=== PATIENT | male | born 1945 | race Hispanic/Latino ===

== ENCOUNTER → 2019-05-02 | Day surgery (SDC) | payer MEDICARE ==
[2019-04-28 12:18] LABS: BASOPHILS % 0.4 % (0.0-1.0); EOSINOPHILS # (AUTO) 0.1 (0.0-0.4); EOSINOPHILS % 0.7 % (0.0-6.0); HEMATOCRIT 40.5 % (38.2-49.6); LYMPHOCYTES # (AUTO) 2.1 (1.0-3.2); LYMPHOCYTES % 24.8 % (18.0-39.1); MEAN CORPUSCULAR HEMOGLOBIN 31.5 pg (28-32); MEAN CORPUSCULAR HGB CONC 34.6 g/dL (31-35); MEAN CORPUSCULAR VOLUME 91.2 fL (81-99); MONOCYTES # (AUTO) 0.7 (0.2-0.8); MONOCYTES % 8.3 % (4.4-11.3); NEUTROPHILS # (AUTO) 5.4 (2.1-6.9); PLATELET COUNT 170 x10e3/uL (140-360); RED BLOOD COUNT 4.44 x10e6/uL (4.3-5.7); RED CELL DISTRIBUTION WIDTH 13.2 % (11.7-14.4)
--- NOTE | 2019-04-28 12:33 | Diagnostic Imaging Report ---
EXAMINATION: CHEST 2 VIEWS INDICATION: Pre-operative COMPARISON: None FINDINGS: TUBES and LINES: None. LUNGS: The lung volumes are normal. No focal consolidation or pulmonary edema. PLEURA: No pleural effusion or pneumothorax. HEART AND MEDIASTINUM: The cardiomediastinal silhouette is normal in size and contour. BONES AND SOFT TISSUES: Age indeterminate T12 compression fracture. UPPER ABDOMEN: No free air under the diaphragm. IMPRESSION: No focal pneumonia or pulmonary edema. Age indeterminate T12 compression fracture. Signed by: Davion Polanco MD on 04/28/2019 12:29 PM
[2019-04-28 12:46] LABS: ANION GAP 10.8 mmol/L (8-16); BLOOD UREA NITROGEN 13 mg/dL (7-26); BUN/CREATININE RATIO 16 (6-25); CALCIUM 8.8 mg/dL (8.4-10.2); CARBON DIOXIDE 26 mmol/L (22-29); CHLORIDE 105 mmol/L (98-107); CREATININE, SERUM 0.81 mg/dL (0.72-1.25); EST GLOMERULAR FILTRATION RATE > 60 ML/MIN (60-); GLUCOSE 81 mg/dL (74-118); POTASSIUM 3.8 mmol/L (3.5-5.1); SODIUM 138 mmol/L (136-145)
[~2019-05-02] MED LIST: BUPIVACAINE 0.25%/EPI 30ML SDV INJ ONE; CHOLESTEROL MED PO; DEXAMETHASONE SOD PHOS INJ 4 MG/ML VIAL ONE; FENTANYL CITRATE/PF 100MCG/2 ML INJ ONE; LIDOCAINE HCL 1% LOCAL INJ 20 ML VIAL ONE; LIDOCAINE HCL 2% LOCAL INJ 5 ML SDV VIAL INJ ONE; METFORMIN HCL500 MG PO; ONDANSETRON HCL INJ 2MG/ML 2ML 2 MG/ML VIAL ONE; PROPOFOL IV EMULSION 10 MG/ML 20 ML VIAL ONE; SEVOFLURANE INHAL SOLN 250 ML PEN BTL ONE
--- OUTSIDE RECORDS SUMMARY | 2019-05-02 06:53 | XMS REPORT ---
Author [facility] Address Unknown Phone Unavailable Care Team Providers Care Shift Leader Name Role Phone Zoey CALHOUN Unavailable Unavailable Payers Payer Name Policy Type Policy Number Effective Date Expiration Date Problems This patient has no known problems. Allergies, Adverse Reactions, Alerts Allergy Name Allergy Type Status Severity Reaction(s) Onset Date Inactive Date Treating Clinician Comments No Known Allergies DA Active U 2018-05-09 00:00:00 Medications This patient has no known medications. Results Test Description Test Time Test Comments Text Results Atomic Results Result Comments CHEST 2 VIEWS 2019-04-28 12:27:00 [place] [address] Patient Name: MAT ELMORE MR #: [id number] : 1945 Age/Sex: 73/M Req #: [id number] [facility] Physician: Ordered by: JAYE CALHOUN MD Report #: [id number] Location: OR Room/Bed: Procedure: [id number] DX/CHEST 2 VIEWS Exam Date: 04/28/19 Exam Time: 1142 REPORT STATUS: Signed EXAMINATION: CHEST 2 VIEWS INDICATION: Pre-operative COMPARISON: None FINDINGS: TUBES and LINES: None. LUNGS: The lung volumes are normal. No focal consolidation or pulmonary edema. PLEURA: No pleural effusion or pneumothorax. HEART AND MEDIASTINUM: The cardiomediastinal silhouette is normal in size and contour. BONES AND SOFT TISSUES: Age indeterminate T12 compression fracture. UPPER ABDOMEN: No free air under the diaphragm. IMPRESSION: No focal pneumonia or pulmonary edema. Age indeterminate T12 compression fracture. Signed by: tEhan Lovell MD on 04/28/2019 12:29 PM Dictated By: ETHAN LOVELL MD 122 Transcribed By: STEVEN on 04/28/191228 COPY TO: JAYE CALHOUN MD PROSTATE, TUR 2019-01-16 15:30:00 RUN DATE: 01/16/19 [facility] PAGE 1 RUN TIME: 1530 Specimen Inquiry RUN USER: INTERFACE PATIENT: MAT ELMORE LOC: [place] U #: [id number] AGE/SX: 73/M ROOM: [facility] RE01/13/19[facility] DR: Mike Kline MD : [birth year] BED: A DIS: 01/14/19 STATUS: DIS John TLOC: SPEC #: [id number] RECD: 01/13/19 STATUS: LITO REQ #: [id number] JUSTINO: 01/13/[address] [facility] [address]: Mike Kline MD ENTERED: 01/13/19 SP TYPE: PROSTATE, OTHR DR: Kristopher Kline MD ORDERED: GROSS COPIES TO: Kristopher Kline MD [address] [place] [address] Mike Kline MD [address] [place] [address] MARKERS: INTRADEPARTMENTAL CONSULT PROCEDURES: GROSS (01/15/19-1540) TISSUES: PROSTATE, NOS - CHIP (TURP) CLINICAL HISTORY COLLECTION DATE: 01/13/19 BPH, BLADDER STONES COMMENT Intradepartmental consultation: RRB. FINAL DIAGNOSIS Prostate chips, transurethral resection of prostate: NODULAR HYPERPLASIA WITH SOME AREAS OF ACUTE AND CHRONIC INFLAMMATION, PROSTATIC TISSUE ACUTE AND CHRONIC INFLAMMATION, UROTHELIAL MUCOSA NEGATIVE FOR MALIGNANCY RUPERTO/ashley Burkett [address] CONTINUED ON NEXT PAGE -- RUN DATE: 01/16/19 [place] - Lab PAGE 2 RUN TIME: 1530 Specimen Inquiry RUN USER: INTERFACE SPEC #: [id number] PATIENT: MAT ELMORE #[id number] ([facility]ly [facility]) MACROSCOPIC The specimen is received in formalin, labeled with the patient's name and identified as "prostate chips". It consists of numerous fragments of rubbery pink-box tissue measuring 4.0 X 4.0 X 3.8 cm in aggregate. The tissue weighs 30.2 grams. Nodular areas are seen in many of the fragments. The specimen is submitted in its entirety for microscopic evaluation in cassettes (1A-1W). GROSS PERFORMED AT [facility] [address] [place] [address] [phone])[phone] MICROSCOPIC All of the stains, including any controls performed, stain appropriately. MICROSCOPIC PERFORMED AT [facility] [address] [place] [address] [phone])[phone] PERFORMING SITE Diagnosis performed at: [facility] [address] [place] [address] Signed SIGNATURE ON FILE Katey Cardenas MD 01/16/19 8380 END OF REPORT GLUBED 2019-01-13 09:17:00 GLUBED (test code=GLUBED) 103 mg/dL 74-106 Performed by certified refinery operator alkylation at [facility] COMPREHENSIVE METABOLIC [id number] 10:40:00* Test Item Value Reference Range Comments SODIUM (test code=NA) 141 mmol/L 136-145 POTASSIUM (test code=K) 3.7 mmol/L 3.5-5.1 CHLORIDE (test code=CL) 109.0 mmol/L 98-107 CARBON DIOXIDE (test code=CO2) 27.0 mmol/L 21-32 ANION GAP (test code=GAP) 8.7 10-20 GLUCOSE (test code=GLU) 106 mg/dL 74-106 BLOOD UREA NITROGEN (test code=BUN) 15 mg/dL 7-18 GLOMERULAR FILTRATION RATE (test code=GFR) > 60 mL/min >=60 Estimated GFR by using Modified MDRD formula.Chronic kidney disease is defined as either kidney damageor GFR <60 mL/min/1.73 m2 for >3 months. CREATININE (test code=CREAT) 0.90 mg/dL 0.7-1.3 BUN/CREATININE RATIO (test code=BUN/CREA) 16.7 10-20 TOTAL PROTEIN (test code=PROT) 7.8 gram/dL 6.4-8.2 ALBUMIN (test code=ALB) 4.0 g/dL 3.4-5.0 GLOBULIN (test code=GLOB) 3.8 gram/dL 2.7-4.2 ALBUMIN/GLOBULIN RATIO (test code=A/G) 1.1 0.75-1.50 CALCIUM (test code=CA) 8.9 mg/dL 8.5-10.1 BILIRUBIN TOTAL (test code=BILT) 0.50 mg/dL 0.0-1.0 SGOT/AST (test code=AST) 20 IUnit/L 15-37 SGPT/ALT (test code=ALT) 30 IUnit/L 12-78 ALKALINE PHOSPHATASE TOTAL (test code=ALKP) 70 IUnit/L 45-117 Note change in reference range due to change in reagent. - XR CHEST 2 [id number] 10:08:00 FAX: Kristopher Curry MD [phone] [place]: O St: PRE FAX: Mike Curry MD [phone] Name: MAT ELMORE [facility] : 1945 Age/S: 73/M [address] [facility] Unit #: [id number] Loc: [place] [address] Phys: Mike Kline MD Acct: [id number] Dis Date: Status: PRE SDC PHONE #: [phone] Exam Date: 01/06/2019 0953 FAX #: [phone] Reason: PRE OP EXAMS: CPT CODE: [id number] XR CHEST 2 V 68192 HISTORY: Preop. COMPARISON: June 07, 2018. AP and lateral view of the chest: No acute infiltrates, effusion or congestion. Cardiac and the mediastinal silhouette are normal. IMPRESSION: No acute infiltrates, effusion or congestion. at 1008 Reported and signed by: Ge Borja M.D. CC: Kristopher Kline; Mike Kline M.D. Technologist: RT Ashanti(Kenzie) Trnscantonio Date/Time/By: 01/06/2019 (1008) : By: [email or web address] Orig Print D/T: S: 01/06/2019 (1011) PAGE 1 Signed Report CBC W/AUTO [id number] 10:01:00* Test Item Value Reference Range Comments WHITE BLOOD CELL (test code=WBC) 8.5 K/mm3 4.5-12.5 RED BLOOD CELL (test code=RBC) 4.65 mill/mm3 4.0-5.8 HEMOGLOBIN (test code=HGB) 14.1 gram/dL 13.0-17.5 HEMATOCRIT (test code=HCT) 43.9 % 42.0-52.0 MEAN CELL VOLUME (test code=MCV) 94.4 fL 80-98 MEAN CELL HGB (test code=MCH) 30.3 picogram 27.0-33.0 MEAN CELL HGB CONCETRATION (test code=MCHC) 32.1 gram/dL 33.0-36.0 RED CELL DISTRIBUTION WIDTH (test code=RDW) 13.3 % 11.6-16.2 RED CELL DISTRIBUTION WIDTH SD (test code=RDW-SD) 46.0 fL 37.0-51.0 PLATELET COUNT (test code=PLT) 163 K/mm3 150-450 MEAN PLATELET VOLUME (test code=MPV) 10.8 fL 6.7-11.0 NEUTROPHIL % (test code=NT%) 64.4 % 39.0-69.0 IMMATURE GRANULOCYTE % (test code=IG%) 0.7 % 0.0-5.0 LYMPHOCYTE % (test code=LY%) 25.8 % 25.0-55.0 MONOCYTE % (test code=MO%) 7.9 % 0.0-10.0 EOSINOPHIL % (test code=EO%) 0.8 % 0.0-5.0 BASOPHIL % (test code=BA%) 0.4 % 0.0-1.0 NUCLEATED RBC % (test code=NRBC%) 0.0 % 0-0 NEUTROPHIL # (test code=NT#) 5.48 K/mm3 1.8-7.7 IMMATURE GRANULOCYTE # (test code=IG#) 0.06 x10 3/uL 0-0.03 LYMPHOCYTE # (test code=LY#) 2.19 K/mm3 1.0-5.0 MONOCYTE # (test code=MO#) 0.67 K/mm3 0-0.8 EOSINOPHIL # (test code=EO#) 0.07 K/mm3 0.0-0.5 BASOPHIL # (test code=BA#) 0.03 K/mm3 0.0-0.2 NUCLEATED RBC # (test code=NRBC#) 0.00 K/mm3 0.0-0.1 MANUAL DIFF REQUIRED (test code=MDIFF) NO CBC W/AUTO [id number] 09:52:00* Test Item Value Reference Range Comments WHITE BLOOD CELL (test code=WBC) K/mm3 4.5-12.5 RED BLOOD CELL (test code=RBC) mill/mm3 4.0-5.8 HEMOGLOBIN (test code=HGB) 14.1 gram/dL 13.0-17.5 HEMATOCRIT (test code=HCT) 43.9 % 42.0-52.0 MEAN CELL VOLUME (test code=MCV) fL 80-98 MEAN CELL HGB (test code=MCH) picogram 27.0-33.0 MEAN CELL HGB CONCETRATION (test code=MCHC) gram/dL 33.0-36.0 RED CELL DISTRIBUTION WIDTH (test code=RDW) % 11.6-16.2 RED CELL DISTRIBUTION WIDTH SD (test code=RDW-SD) fL 37.0-51.0 PLATELET COUNT (test code=PLT) K/mm3 150-450 MEAN PLATELET VOLUME (test code=MPV) fL 6.7-11.0 NEUTROPHIL % (test code=NT%) % 39.0-69.0 IMMATURE GRANULOCYTE % (test code=IG%) % 0.0-5.0 LYMPHOCYTE % (test code=LY%) % 25.0-55.0 MONOCYTE % (test code=MO%) % 0.0-10.0 EOSINOPHIL % (test code=EO%) % 0.0-5.0 BASOPHIL % (test code=BA%) % 0.0-1.0 NEUTROPHIL # (test code=NT#) K/mm3 1.8-7.7 LYMPHOCYTE # (test code=LY#) K/mm3 1.0-5.0 MONOCYTE # (test code=MO#) K/mm3 0-0.8 EOSINOPHIL # (test code=EO#) K/mm3 0.0-0.5 BASOPHIL # (test code=BA#) K/mm3 0.0-0.2 [id number] 13:09:00 RUN DATE: 06/14/18 [facility] PAGE 1 RUN TIME: 1309 Specimen Inqui ry RUN USER: INTERFACE PATIENT: MAT ELMORE ACCT #: [id number] [facility] U #: [id number] AGE/SX: 72/M ROOM: RE06/13/18[facility] DR: Mike Kline MD : [birth year] BED: DIS: STATUS: [facility] TLOC: SPEC #: [id number] RECD: 06/13/18 STATUS: LITO REQ #: [id number] JUSTINO: 06/13/18 [facility] DR: Mike Kline MD ENTERED: 06/13/18 SP TYPE: CALCULI OTHR DR: Kristopher Kline MD ORDERED: GROSS COPIES TO: Kristopher Kline MD [address] [place] [address] Mike Kline MD [address] [facility] [place] [address] PROCEDURES: GROSS (06/14/18-1247) TISSU ES: KIDNEY, NOS - STONES CLINICAL HISTORY COLLECTION DATE: 06/13/18 KIDNEY STONE FINAL DIAGNOSIS Renal stone, removal: RENAL CALCULUS MATERIAL (GROSS IDENTIFICATION) SUBMITTED FOR CHEMICAL ANALYSIS RRPaty/ashley D 92389 MACROSCOPIC The specimen is received in a small amount of saline labeled with the patient's name, "kidney stone for analysis" and consists of fragments of dark box-brown calculus mater ial ranging from 0.1 to 0.25 cm with an aggregate measurement of 1.0 X 1.0 x 0.15 cm. The specimen is submitted for chemical analysis. GROSS PERFORM ED AT [facility] CONTINUED ON NEXT PAGE RUN DATE: 06/14/18 [facility] PAGE 2 RUN TIME: 1309 Speci men Inquiry RUN USER: INTERFACE SPEC #: [id number] PATIENT: MAT TO JOSE #[id number] (Continued) DAWSON MOORE (Continued) [facility] [address] [place] [address], [place] [address] [phone] MICROSCOPIC MICROSCOPIC PERFOR MED AT [facility] All of the stains, including any controls perfor med, stain appropriately. [facility] [address] [place] [address] (P)[phone] Signed SIGNATURE ON FILE Arnulfo Self 06/14/18 1309 END OF REPORT
[2019-05-02 14:55] VITALS: BP 161/92
--- NOTE | 2019-05-02 15:02 | Operative Report ---
DATE OF PROCEDURE: 05/02/2019 SURGEON: Nader Dove MD PREOPERATIVE DIAGNOSIS: Right inguinal hernia. POSTOPERATIVE DIAGNOSIS: Right inguinal hernia. OPERATION PERFORMED: Repair of right inguinal hernia with large Prolene hernia system. TWO NEEDLE MACHINE OPERATOR: KATHERIN Gaytan. ANESTHESIA: General. COMPLICATIONS: None. ESTIMATED BLOOD LOSS: Minimal. PROCEDURE IN DETAIL: With the patient lying in bed in supine position under good general anesthesia, the abdomen was prepped with Betadine solution and draped in the usual manner. A right inguinal incision was made, it was carried down through the subcutaneous tissue down to the external oblique aponeurosis. External oblique was then opened along the length of its fibers and the external inguinal ring was opened. The cord was then mobilized and retracted. Exploration of the cord revealed a large hernia sac, which contained the bladder medially. The hernia sac was then from all the cord structures and reduced back to the intraabdominal cavity. We decided not to resect the sac as the wall of the bladder was part of the hernia sac. The preperitoneal space was then entered right through the internal ring and a pocket was created without any difficulty. A large Prolene hernia system was then placed in the preperitoneal space and deployed without any problems. The overlay patch was then placed over the floor and split inferolaterally to allow for passage of the cord. The mesh was then sutured to the conjoint tendon and the inguinal ligament using interrupted sutures of 2-0 Vicryl. The whole area was thoroughly irrigated. Perfect hemostasis was ascertained. The external oblique aponeurosis was then closed with a running suture of 2-0 Vicryl, the subcutaneous tissue was approximated with 3-0 plain, and the skin was closed with clips. A dressing was applied. The sponge, lap, and needle count was correct. The patient tolerated the procedure well and returned to the recovery room in stable condition. MD LUIS A Fernández/SHAYL /[id number]
== END | disposition home or self-care (01) ==
LOC: OR 06:51
PROVIDERS: ATTEND Surgery
DX: K40.90 Unilateral inguinal hernia, without obstruction or gangrene, not specified as recurrent (principal); E78.5 Hyperlipidemia, unspecified; E11.9 Type 2 diabetes mellitus without complications; Z79.84 Long term (current) use of oral hypoglycemic drugs; E78.00 Pure hypercholesterolemia, unspecified; Z01.810 Encounter for preprocedural cardiovascular examination; Z01.812 Encounter for preprocedural laboratory examination; Z01.811 Encounter for preprocedural respiratory examination
CPT/HCPCS: 36415 ×2; 49505; 71046; 80048; 82948; 85025; 93005; C1781; J1100; J2001 ×2; J2405; J2704; J3010